=== PATIENT | male | born 2005 | race African-American/Black ===

== ENCOUNTER → 2024-05-30 | Outpatient (CLI) | payer OTHER | LOC: MHCPAIN 09:50 | DX: M54.50 Low back pain, unspecified (principal); M79.18 Myalgia, other site; G89.29 Other chronic pain | CPT/HCPCS: G0463 ==

== ENCOUNTER → 2024-06-22 | Outpatient (CLI) | payer OTHER | LOC: MHCPAIN 08:19 | DX: M47.817 Spondylosis without myelopathy or radiculopathy, lumbosacral region (principal); M54.50 Low back pain, unspecified | CPT/HCPCS: J0665 ==

== ENCOUNTER → 2024-06-28 | Outpatient (CLI) | payer OTHER | LOC: MHCPAIN 14:49 | DX: M54.50 Low back pain, unspecified (principal); M79.604 Pain in right leg; M79.605 Pain in left leg | CPT/HCPCS: G0463 ==

== ENCOUNTER → 2024-08-10 | Outpatient (CLI) | payer OTHER | LOC: MHCPAIN 08:17 | DX: M47.817 Spondylosis without myelopathy or radiculopathy, lumbosacral region (principal); M54.50 Low back pain, unspecified | CPT/HCPCS: J0665 ==

== ENCOUNTER → 2024-08-14 | Outpatient (CLI) | payer OTHER | LOC: MHCPAIN 10:20 | DX: M54.50 Low back pain, unspecified (principal); M79.604 Pain in right leg; M79.605 Pain in left leg | CPT/HCPCS: G0463 ==

== ENCOUNTER → 2024-09-04 | Outpatient (CLI) | payer OTHER ==
[~2024-09-04] MED LIST: Atropine 1 MG/10 ML SYRINGE IV ONE; Glycopyrrolate 0.2 MG/ML 1 ML VIAL ONE; Lidocaine PF 2% (20 MG/ML) 5 ML VIAL ONE; Midazolam 2 MG/2 ML VIAL ONE; ePHEDrine 50 MG/10 ML VIAL IV ONE; fentaNYL 50 MCG/ML 2 ML VIAL ONE
== END ==
LOC: MHCPAIN 07:28
DX: M47.817 Spondylosis without myelopathy or radiculopathy, lumbosacral region (principal); M54.50 Low back pain, unspecified
CPT/HCPCS: J0461; J0665; J2250; J3010

== ENCOUNTER → 2024-09-14 | Outpatient (CLI) | payer OTHER | LOC: MHCPAIN 07:29 | DX: M47.816 Spondylosis without myelopathy or radiculopathy, lumbar region (principal); M54.50 Low back pain, unspecified; G89.29 Other chronic pain | CPT/HCPCS: J0461; J0665; J2250; J3010 ==